=== PATIENT | male | born 1950 | race Two or more races ===

== ENCOUNTER 2017-05-23 06:23 | Inpatient (IN) | payer OTHER ==
[~2017-05-23] VITALS: Ht 175.3 cm; Wt 78.5 kg
[2017-05-23] MEDS ORDERED: TOPROL XL25 M1 (06:31)
[2017-05-23] MEDS ORDERED: XANAX0.25 MG (06:32)
== END 2017-05-28 13:23 | disposition home or self-care (01) | DRG 446 ==
LOC: ER 06:23 → MEDJ 18:55
PROC: BW40ZZZ Ultrasonography of Abdomen (ICD-10-PCS; 2017-05-23)
PROC: BW21Y0Z Computerized Tomography (CT Scan) of Abdomen and Pelvis using Other Contrast, Unenhanced and Enhanced (ICD-10-PCS; 2017-05-24)
PROC: BF37ZZZ Magnetic Resonance Imaging (MRI) of Pancreas (ICD-10-PCS; principal; 2017-05-26)
DX: K80.00 Calculus of gallbladder with acute cholecystitis without obstruction (principal); K29.00 Acute gastritis without bleeding; I10 Essential (primary) hypertension; N40.0 Benign prostatic hyperplasia without lower urinary tract symptoms

== ENCOUNTER 2017-06-10 00:51 | Inpatient (IN) | payer OTHER ==
[~2017-06-10] VITALS: Ht 172.7 cm; Wt 47.6 kg
[~2017-06-10 00:51] MED LIST: TOPROL XL25 M1; XANAX0.25 MG
== END 2017-06-19 09:28 | disposition home or self-care (01) | DRG 416 ==
LOC: ER 00:51 → SURG 13:11 → SEC-K 13:11 → SURG 06-11 13:31
PROVIDERS: Surgery
PROC: BW40ZZZ Ultrasonography of Abdomen (ICD-10-PCS; 2017-06-10)
PROC: 0FT40ZZ Resection of Gallbladder, Open Approach (ICD-10-PCS; principal; 2017-06-12 16:00)
DX: K80.00 Calculus of gallbladder with acute cholecystitis without obstruction (principal); N40.0 Benign prostatic hyperplasia without lower urinary tract symptoms; I10 Essential (primary) hypertension; K29.00 Acute gastritis without bleeding; B96.20 Unspecified Escherichia coli [E. coli] as the cause of diseases classified elsewhere

== ENCOUNTER 2017-07-18 10:59 | Outpatient (CLI) | payer OTHER | END 2017-07-18 11:19 | disposition home or self-care (01) | LOC: LAB 10:59 | DX: L76.32 Postprocedural hematoma of skin and subcutaneous tissue following other procedure (principal) ==

== ENCOUNTER 2018-02-08 17:09 | Emergency (ER) | payer OTHER ==
[~2018-02-08] VITALS: Ht 175.3 cm; Wt 80.3 kg
[2018-02-08] MEDS ORDERED: LUMIGAN2.5 M1 (17:21)
[2018-02-08] MEDS ORDERED: PROBIOTIC1 EAC1 (17:22)
[2018-02-08] MEDS ORDERED: TAMS0.4C (17:22)
[2018-02-08] MEDS ORDERED: ATORVASTATIN CA40 MG (17:22)
== END 2018-02-09 10:16 | disposition home or self-care (01) ==
LOC: ER 17:09
DX: K57.92 Diverticulitis of intestine, part unspecified, without perforation or abscess without bleeding (principal)

== ENCOUNTER 2018-02-18 17:05 | Outpatient (CLI) | payer OTHER ==
[~2018-02-18 17:05] MED LIST changes: +ATORVASTATIN CA40 MG; +LUMIGAN2.5 M1; +PROBIOTIC1 EAC1; +TAMS0.4C
== END 2018-02-18 17:17 | disposition home or self-care (01) ==
LOC: LAB 17:05
DX: N40.1 Benign prostatic hyperplasia with lower urinary tract symptoms (principal); R97.20 Elevated prostate specific antigen [PSA]; R33.8 Other retention of urine

== ENCOUNTER 2018-03-13 10:06 | Outpatient (CLI) | payer OTHER | END 2018-03-13 10:43 | disposition home or self-care (01) | LOC: LAB 10:06 | DX: N30.00 Acute cystitis without hematuria (principal) ==

== ENCOUNTER 2018-06-05 07:27 | Outpatient (CLI) | payer OTHER | END 2018-06-05 07:35 | disposition home or self-care (01) | LOC: LAB 07:27 | DX: M31.6 Other giant cell arteritis (principal); M47.12 Other spondylosis with myelopathy, cervical region ==

== ENCOUNTER 2018-06-06 07:06 | Outpatient (CLI) | payer OTHER | END 2018-06-06 07:21 | disposition home or self-care (01) | LOC: MRI 07:06 | DX: C71.8 Malignant neoplasm of overlapping sites of brain (principal) | CPT/HCPCS: 70551 ==

== ENCOUNTER 2018-07-10 11:46 | Outpatient (CLI) | payer OTHER | END 2018-07-10 12:39 | disposition home or self-care (01) | LOC: LAB 11:46 | DX: E78.2 Mixed hyperlipidemia (principal); I10 Essential (primary) hypertension; M06.9 Rheumatoid arthritis, unspecified; E11.9 Type 2 diabetes mellitus without complications; E03.8 Other specified hypothyroidism ==

== ENCOUNTER 2018-07-10 14:14 | Outpatient (CLI) | payer OTHER | END 2018-07-10 14:27 | disposition home or self-care (01) | LOC: RAD 501 14:14 | DX: H25.012 Cortical age-related cataract, left eye (principal); Z98.42 Cataract extraction status, left eye; Z01.810 Encounter for preprocedural cardiovascular examination ==

== ENCOUNTER 2018-10-24 23:00 | Emergency (ER) | payer OTHER ==
[~2018-10-24] VITALS: Ht 172.7 cm; Wt 79.4 kg
[2018-10-25] MEDS ORDERED: MOBIC15 MG PO (02:32)
== END 2018-10-25 03:07 | disposition home or self-care (01) ==
LOC: ER 23:00
DX: G44.209 Tension-type headache, unspecified, not intractable (principal)

== ENCOUNTER 2018-11-04 11:18 | Outpatient (CLI) | payer OTHER ==
[~2018-11-04 11:18] MED LIST changes: +MOBIC15 MG PO
== END 2018-11-04 11:43 | disposition home or self-care (01) ==
LOC: LAB 11:18
DX: E03.8 Other specified hypothyroidism (principal); I10 Essential (primary) hypertension; E11.9 Type 2 diabetes mellitus without complications; E78.2 Mixed hyperlipidemia

== ENCOUNTER 2018-12-26 12:22 | Outpatient (CLI) | payer OTHER | END 2018-12-26 12:33 | disposition home or self-care (01) | LOC: LAB 12:22 | DX: N40.1 Benign prostatic hyperplasia with lower urinary tract symptoms (principal); R97.20 Elevated prostate specific antigen [PSA]; N30.00 Acute cystitis without hematuria ==